=== PATIENT | male | born 1955 | race Caucasian/White ===

== ENCOUNTER 2019-05-19 08:58 | Outpatient (CLI) | payer BC, SELFPAY ==
--- NOTE | ~2019-05-19 | CT_ITS ---
EXAMINATION: CT lung screening DATE: 05/19/2019 09:23 INDICATION: tobacco dependence; lung cancer screening TECHNIQUE: Computed tomography (CT) of the chest was performed without intravenous contrast using a [place] low dose lung cancer screening protocol. Additional 3D reconstructions utilizing coronal maxi mum intensity projection (MIP) were performed. Automated exposure control and iterative reconstructio n technique were employed. The dose-length product was 483.55 mGy-cm. COMPARISON: 02/06/2017 FINDINGS: Mild emphysema at the apices. Unchanged 1-2 mm calcified nodule at the left apex consistent with old granulomatous disease. No new or enlarging pulmonary nodules identified. No other airspace disease, p ulmonary edema, pleural effusion or pneumothorax. Heart size is normal. Atherosclerotic coronary ирина ry calcific a cyst. No pericardial effusion. Fusiform ascending thoracic aortic aneurysm measuring up to 4.8 x 4.9 mm in maximal diameter. No pathologically enlarged thoracic lymphadenopathy. There are 3 low-attenuation hepatic cysts measuring up to 2.0 cm. 2.5 cm mass containing macroscopic fat consis tent with myelolipoma. 1.3 cm low-attenuation adenoma in the right adrenal gland. There are bridging osteophytes at multiple levels in the spine, consistent with diffuse idiopathic skeletal hyperostosis (DISH). IMPRESSION: 1. Lung-RADS category 1: Negative. Continue annual screening with noncontrast low-dose chest CT in 12 months. Reviewed, dictated and finalized at location A. CONSULTANT IMPRESSION: 1. Lung-RADS category 1: Negative. Continue annual screening with noncontrast l ow-dose chest CT in 12 months.
== END 2019-05-19 08:59 | disposition home or self-care (01) ==
PROVIDERS: PCP Internal Medicine; Visit Provider Internal Medicine
DX: Z12.2 Encounter for screening for malignant neoplasm of respiratory organs (principal); Z87.891 Personal history of nicotine dependence
CPT/HCPCS: G0297

== ENCOUNTER 2019-06-09 07:34 | Outpatient (CLI) | payer BC, SELFPAY ==
[2019-06-09 07:51] LABS: Add Urine Microscopic? NO; Appearance Urine Clear (Clear); Bilirubin Urine Negative (Negative); Blood Urine Negative (Negative); Color Urine Yellow (Yellow); Glucose Urine UA Negative (Negative); Ketones Urine Negative (Negative); Leukocyte Esterase Ur Negative LEU/UL (Negative); Nitrate Urine Negative (Negative); Protein Urine Negative (Negative); Specific Grav Ur 1.025 (1.010-1.020); Urobilinogen Urine 0.2 mg/dL (0.2-1.0)
[2019-06-09 08:02] LABS: Creatinine Urine 112.39 mg/dL (40-278)
[2019-06-09 08:04] LABS: Hemoglobin A1C 6.5 % (<5.7)
[2019-06-09 08:16] LABS: MALB Creatinine Ratio 11.4 mg/g (0-30); Microalbumin Urine Random 12.9 mg/L
[2019-06-09 09:10] LABS: Alanine Aminotransferase 39 U/L (16-63); Albumin Level 3.8 g/dL (3.4-5.0); Alkaline Phosphatase 126 U/L (46-116); Anion Gap 11.8 mmol/L (7-16); Aspartate Amino Transferase 16 U/L (15-37); Bilirubin,Total 0.6 mg/dL (0.00-1.00); Blood Urea Nitrogen 26 mg/dL (7-18); Calcium 8.4 mg/dL (8.5-10.1); Carbon Dioxide 30 mmol/L (21-32); Chloride 105 mmol/L (98-108); Cholesterol 127 mg/dL (0-200); Creatine Kinase 123 U/L (39-308); Estimated Glomerular Filt Rate 55; Glucose 108 mg/dL (70-99); HDL Direct 53 mg/dL (40-60); LDL Cholesterol Calculated 55 mg/dL (<130); Osmolality Calculated 301 mOsm/kg (285-295); Potassium 3.8 mmol/L (3.5-5.1); Prostate Specific Antigen 3.8 ng/mL (< OR = 4.0); Sodium 143 mmol/L (136-145); Total Protein 6.8 g/dL (6.4-8.2); Triglycerides 94 mg/dL (0-150)
== END 2019-06-09 07:35 | disposition home or self-care (01) ==
LOC: CHSLAB 07:36
PROVIDERS: PCP Internal Medicine; Visit Provider Internal Medicine
DX: E78.5 Hyperlipidemia, unspecified (principal); I10 Essential (primary) hypertension; Z12.5 Encounter for screening for malignant neoplasm of prostate; E11.65 Type 2 diabetes mellitus with hyperglycemia
CPT/HCPCS: 36415; 80053; 80061; 81003; 82043; 82550; 83036; 84153; G0103

== ENCOUNTER 2019-12-04 08:25 | Outpatient (CLI) | payer BC, SELFPAY ==
[2019-12-05 01:53] LABS: SARS-CoV-2 RNA PCR Negative
== END 2019-12-04 08:26 | disposition home or self-care (01) ==
LOC: CHSLAB 08:27
PROVIDERS: PCP Internal Medicine; Visit Provider Internal Medicine
DX: Z20.828 Contact with and (suspected) exposure to other viral communicable diseases (principal)
CPT/HCPCS: 87635; C9803; U0003

== ENCOUNTER 2019-12-31 09:56 | Outpatient (CLI) | payer BC, SELFPAY ==
[2020-01-01 01:34] LABS: SARS-CoV-2 RNA PCR Negative
== END 2019-12-31 09:57 | disposition home or self-care (01) ==
PROVIDERS: PCP Internal Medicine; Visit Provider Internal Medicine
DX: Z20.828 Contact with and (suspected) exposure to other viral communicable diseases (principal)
CPT/HCPCS: 87635; C9803; U0003

== ENCOUNTER 2020-02-22 07:41 | Outpatient (CLI) | payer BC, SELFPAY ==
[2020-02-22 07:57] LABS: Add Urine Microscopic? NO; Appearance Urine Clear (Clear); Bilirubin Urine Negative (Negative); Blood Urine Negative (Negative); Color Urine Yellow (Yellow); Glucose Urine UA Negative (Negative); Ketones Urine Negative (Negative); Leukocyte Esterase Ur Negative (Negative); Nitrate Urine Negative (Negative); Protein Urine Negative (Negative); Urobilinogen Urine 0.2 mg/dL (0.2-1.0); pH Urine 5.5 (5.0-8.0)
[2020-02-22 08:21] LABS: Hemoglobin A1C 6.2 % (<5.7)
[2020-02-22 08:35] LABS: Alanine Aminotransferase 38 U/L (16-63); Alkaline Phosphatase 140 U/L (46-116); Anion Gap 10 mmol/L (8-16); Aspartate Amino Transferase 18 U/L (15-37); Bilirubin,Total 0.7 mg/dL (0.00-1.00); Blood Urea Nitrogen 22 mg/dL (7-18); Calcium 8.5 mg/dL (8.5-10.1); Carbon Dioxide 28 mmol/L (21-32); Chloride 104 mmol/L (98-108); Cholesterol 128 mg/dL (0-200); Creatine Kinase 113 U/L (39-308); Estimated Glomerular Filt Rate 55; Glucose 114 mg/dL (70-99); HDL Direct 32 mg/dL (40-60); LDL Cholesterol Calculated 70 mg/dL (<130); Osmolality Calculated 298 mOsm/kg (285-295); Potassium 3.7 mmol/L (3.5-5.1); Sodium 142 mmol/L (136-145); Total Protein 7.1 g/dL (6.4-8.2); Triglycerides 131 mg/dL (0-150)
== END 2020-02-22 07:42 | disposition home or self-care (01) ==
LOC: CHSLAB 07:43
PROVIDERS: PCP Internal Medicine; Visit Provider Internal Medicine
DX: E78.2 Mixed hyperlipidemia (principal); I12.9 Hypertensive chronic kidney disease with stage 1 through stage 4 chronic kidney disease, or unspecified chronic kidney disease; R73.01 Impaired fasting glucose; N18.2 Chronic kidney disease, stage 2 (mild)
CPT/HCPCS: 36415; 80053; 80061; 81003; 82550; 83036

== ENCOUNTER 2020-05-09 08:49 | Outpatient (CLI) | payer BC, SELFPAY ==
[2020-05-09 09:48] LABS: Anion Gap 10 mmol/L (8-16); Blood Urea Nitrogen 21 mg/dL (7-18); Calcium 8.6 mg/dL (8.5-10.1); Carbon Dioxide 26 mmol/L (21-32); Chloride 104 mmol/L (98-108); Estimated Glomerular Filt Rate 44; Glucose 132 mg/dL (70-99); Osmolality Calculated 295 mOsm/kg (285-295); Potassium 4.9 mmol/L (3.5-5.1); Sodium 140 mmol/L (136-145)
== END 2020-05-09 08:50 | disposition home or self-care (01) ==
LOC: CHSLAB 08:51
PROVIDERS: PCP Internal Medicine; Visit Provider Internal Medicine
DX: I10 Essential (primary) hypertension (principal)
CPT/HCPCS: 36415; 80048

== ENCOUNTER 2020-05-23 09:11 | Outpatient (CLI) | payer BC, SELFPAY ==
--- NOTE | ~2020-05-23 | CT_ITS ---
EXAMINATION:CT lung screening DATE: 05/23/2020 09:37 INDICATION: Personal history of tobacco dependence. Smoker who quit 5 years ago with 41 pack year his tory. TECHNIQUE: Computed tomography (CT) of the chest was performed without intravenous contrast. Automate d exposure control and iterative reconstruction technique were employed. The dose-length product (DLP ) was 520.52 mGy-cm. COMPARISON: Chest CT 05/19/2019 FINDINGS: There is mild emphysema. A calcified left lung nodule is consistent with old granulomatous disease. No pleural effusion. The heart size is normal. There are coronary artery calcifications. No pericardial effusion. There is ectasia of ascending aorta measuring 4.6 cm. There is diffuse hepatic steatosis. There are cysts in the liver measuring up to 2.1 cm. There is a 13 mm mass in right adrena l gland measuring low-attenuation, consistent with an adenoma. There is a 2.7 cm mass in left adrenal gland containing macroscopic fat, consistent with a myelolipoma. There are bridging endplate osteoph ytes at multiple levels in the spine, consistent with diffuse idiopathic skeletal hyperostosis (DISH) . There is mild splenomegaly. IMPRESSION: 1. Lung-RADS category 1: Negative. Continue annual screening with noncontrast low-dose chest CT in 12 months. 2. Worsened mild splenomegaly. Reviewed, dictated and finalized at location A. SCIENTISTS IMPRESSION: 1. Lung-RADS category 1: Negative. Continue annual screening with noncontrast l ow-dose chest CT in 12 months. 2. Worsened mild splenomegaly.
== END 2020-05-23 09:12 | disposition home or self-care (01) ==
LOC: CHSIMG 09:12
PROVIDERS: PCP Internal Medicine; Visit Provider Internal Medicine
DX: Z12.2 Encounter for screening for malignant neoplasm of respiratory organs (principal); Z87.891 Personal history of nicotine dependence
CPT/HCPCS: 71271

== ENCOUNTER 2020-12-22 00:29 | Day surgery (SDC) | payer BC, SELFPAY ==
[2020-12-08 14:40] VITALS: BMI 38.5
[2020-12-22 06:53] VITALS: BP 156/96; PULSE 95; RESP 21; TEMP 36.3; O2SAT 98; BMI 41.4
[2020-12-22] MEDS: LACTATED RINGERS 1,000 ML 150 ML IV CONT (06:56)
--- NOTE | 2020-12-22 07:41 | WPDANESEPPF ---
Anes - Initial Pre Proc Eval Procedure: Operation Date: 12/22/20 08:00 Proposed Procedures p Colonoscopy - Felix Mistry DO Date/Time: 12/22/20 07:41 Surgeon: Felix Mistry DO Pre Op Diagnosis: colon polyps Patient Data Age: 65 Gender: M Height: 1.83 m Weight: 138.7 kg Last Vital Signs Temp 97.4 F L 12/22/20 06:53 Pulse 95 12/22/20 06:53 Resp 21 H 12/22/20 06:53 BP 156/96 H 12/22/20 06:53 Pulse Ox 98 12/22/20 06:53 Allergies Allergy/AdvReac Type Severity Reaction Status Date / Time bee venom protein (honey bee) Allergy Unknown SWELLING Verified 12/22/20 06:52 OF EXTREMETIES cefaclor Allergy Unknown Hives Verified 12/22/20 06:52 Home Medications Medication Instructions Recorded Confirmed Type atorvastatin 40 mg PO DAILY 12/08/20 12/22/20 History losartan 100 mg PO DAILY 12/08/20 12/22/20 History Patient hx anesthesia problems: none Family hx anesthesia problems: none PMFSH Past Medical History Medical History (Updated 12/22/20 @ 07:37 by Manav Guaman MD) COPD (chronic obstructive pulmonary disease) Hyperlipidemia Hypertension Family History Family History (Updated 11/15/17 @ 10:01 by DOCTOR UNKNOWN) Other Family history of lung cancer Hypertension Social History Social History Smoking packs per day: 1 Smoking cigarettes per day: 20.0 Smoking status: Former smoker Smoking end date: 04/01/15 Alcohol intake: current Substance use type: does not use Anes - Eval Final PreProcedure Day of Procedure 12/22/20 07:41 Patient weight: morbidly obese Heart: regular rate and rhythm Lungs: clear to auscultation Airway: Mallampati scale class II Neurological: alert and oriented Last oral intake: >/= 8 hours ASA classification: III Emergent: no Anesthetic plan: proceed Anesthesia type and monitoring: general GIVS and standard monitoring Informed Consent: The patient's anesthetic plan and its attendant risks and benefits were discussed with the patient/family/POA. Questions were solicited and answers provided to the satisfaction of the patient/family/POA.
--- NOTE | 2020-12-22 07:55 | PM.IMHP ---
H&P: HPI History of Present Illness Date/Time: 12/22/20 07:55 Chief Complaint: history of colon polyps Narrative: this is a 65-year-old man who presents for colonoscopy. Last colonoscopy was 5 years ago and a polyp was removed. He denies any hematochezia or melena. There is no family history of colon cancer. Review of Systems Review of Systems: All systems reviewed & are unremarkable except as noted in HPI and below Constitutional: Constitutional: Denies chills, Denies fever(s), Denies headache(s) and Denies weight loss Eyes: Eyes: Denies change in vision ENT: Denies dizziness, Denies headache(s), Denies neck mass and Denies throat swelling Cardiovascular: Cardiovascular: Denies chest pain, Denies lightheadedness and Denies dyspnea Respiratory: Respiratory: Denies cough, Denies dyspnea and Denies wheezing Gastrointestinal: Gastrointestinal: Denies abdominal pain, Denies change in bowel habits, Denies nausea and Denies vomiting Genitourinary: Genitourinary: Denies hematuria and Denies dysuria Musculoskeletal: Musculoskeletal: Reports as per HPI Integumentary/Breasts: Skin/Breast: Reports as per HPI Neurologic: Denies dizziness and Denies headache(s) Allergic/Immunologic: Allergic/Immunologic: Denies throat swelling and Denies wheezing [facility] Past Medical History Medical History (Updated 12/22/20 @ 07:56 by Felix Mistry DO) COPD (chronic obstructive pulmonary disease) Hyperlipidemia Hypertension Family History Family History (Updated 11/15/17 @ 10:01 by DOCTOR UNKNOWN) Other Family history of lung cancer Hypertension Social History Social History Smoking packs per day: 1 Smoking cigarettes per day: 20.0 Smoking status: Former smoker Smoking end date: 04/01/15 Alcohol intake: current Substance use type: does not use Meds Home Medications and Allergies Home Medications Medication Instructions Recorded Confirmed Type atorvastatin 40 mg PO DAILY 12/08/20 12/22/20 History losartan 100 mg PO DAILY 12/08/20 12/22/20 History Allergies Allergy/AdvReac Type Severity Reaction Status Date / Time bee venom protein (honey bee) Allergy Unknown SWELLING Verified 12/22/20 06:52 OF EXTREMETIES cefaclor Allergy Unknown Hives Verified 12/22/20 06:52 Vital Signs Vital Signs - 24 hr 12/22/20 06:53 Temperature 36.3 C L Pulse Rate 95 Respiratory Rate 21 H Blood Pressure 156/96 H Pulse Oximetry 98 Exam Const: General: no acute distress and alert Orientation/consciousness: patient oriented x3 HENMT: Head: normocephalic and atraumatic Ears: hearing grossly normal bilaterally General nose exam: Normal nares present Mouth: Yes Normal oral and palatal mucosa present Eyes: Periorbital: periorbital findings normal Sclera: sclerae normal EOM: EOMs intact bilaterally Neck: Neck: normal visual inspection, no lymphadenopathy and trachea midline Chest: Chest palpation & inspection: normal inspection of the chest Resp: Effort & Inspection: normal respiratory effort Auscultation: clear to auscultation bilaterally Cardio: Jugular venous distension: no JVD Rate: regular rate Rhythm: regular rhythm Heart sounds: S1 normal heart sound present and S2 normal heart sound present Peripheral pulses: Peripheral pulses 2+ throughout GI: Inspection: normal to inspection GI Palp: Yes Soft to palpation, No Tenderness to palpation present (GI), No Guarding due to palpation present (GI) and No Rebound tenderness present Percussion: Yes normal to percussion Auscultation: normal bowel sounds : General: Yes no CVA tenderness Back/Spine/Pelvis: Back: no CVA tenderness Neuro: General: patient oriented x3, no focal motor deficits and CN's II-XI intact bilaterally Cognition (Neuro): normal cognition Speech: normal speech Motor exam (neuro): 5/5 motor strength present throughout Extrem: General: capillary refill normal and no clubbing, cyanosis or edema Assessmen
--- NOTE | 2020-12-22 08:16 | SUR.OPER ---
cecal time 0816
[2020-12-22 08:34] VITALS: BP 109/71; PULSE 81; RESP 20; O2SAT 96
[2020-12-22 08:44] VITALS: BP 107/78; PULSE 76; RESP 15; O2SAT 95
[2020-12-22 08:54] VITALS: BP 127/74; PULSE 74; RESP 18; O2SAT 95
== END 2020-12-22 09:14 | disposition home or self-care (01) ==
PROVIDERS: PCP Internal Medicine; Visit Provider Surgery
PROC: 0DJD8ZZ Inspection of Lower Intestinal Tract, Via Natural or Artificial Opening Endoscopic (ICD-10-PCS; CPT 45378; principal; 2020-12-22 08:00)
DX: Z12.11 Encounter for screening for malignant neoplasm of colon (principal); D12.8 Benign neoplasm of rectum; K57.30 Diverticulosis of large intestine without perforation or abscess without bleeding; K64.8 Other hemorrhoids; J44.9 Chronic obstructive pulmonary disease, unspecified; I10 Essential (primary) hypertension; E78.5 Hyperlipidemia, unspecified; Z87.891 Personal history of nicotine dependence
CPT/HCPCS: 45380; 88305; J2704; J7120

== ENCOUNTER 2021-06-29 10:22 | Outpatient (CLI) | payer BC, SELFPAY ==
--- NOTE | ~2021-06-29 | CT_ITS ---
EXAMINATION:CT diagnostic chest wo con DATE: 06/29/2021 11:01 INDICATION: Thoracic aortic aneurysm. Pulmonary nodule. TECHNIQUE: Computed tomography (CT) of the chest was performed without intravenous contrast. Automate d exposure control and iterative reconstruction technique were employed. The dose-length product (DLP ) was 833.47 mGy-cm. COMPARISON: Chest CT 05/23/2020 FINDINGS: There is mild emphysema. No pleural effusion. The heart size is normal. There are coronary artery calcifications. No pericardial effusion. There is ectasia of ascending aorta measuring 4.7 cm. There are cysts in the liver measuring up to 2.4 cm. There is a 2.5 cm mass in left adrenal gland co ntaining fat, consistent with a myelolipoma. There are bridging endplate osteophytes at multiple leve ls in the spine, consistent with diffuse idiopathic skeletal hyperostosis (DISH). IMPRESSION: 1. Stable ectasia of ascending aorta measuring 4.7 cm. Reviewed, dictated and finalized at location A.
--- NOTE | ~2021-06-29 | XR_ITS ---
EXAMINATION: XR knee RT min 4V EXAM DATE: 06/29/2021 11:03 INDICATION: B/L Ant Knee Pain . TECHNIQUE: Right knee lateral, frontal AP, frontal PA tunnel, sunrise projections. Correlation is mad e to contralateral knee same date. FINDINGS: No evidence osteochondral defect or joint body in the right knee joint. There is suprapa tellar enthesopathy. No joint effusion. There is mild tricompartmental but patellofemoral compartment predominant primary osteoarthritis, symmetric to the contralateral side. There are no acute fracture s or dislocations identified. There is no subcutaneous gas. The soft tissue is unremarkable. Ther e are no radiopaque foreign bodies. IMPRESSION: Mild right knee patellofemoral compartment predominant osteoarthritis. Reviewed, dictated and finalized at location B. IMPRESSION: Mild right knee patellofemoral compartment predominant osteoarthrit is.
--- NOTE | ~2021-06-29 | XR_ITS ---
EXAMINATION: XR knee LT min 4V EXAM DATE: 06/29/2021 11:02 INDICATION: B/L Ant Knee Pain . TECHNIQUE: Left knee lateral, frontal AP, frontal PA tunnel, sunrise projections. Correlation is made to contralateral knee same date. FINDINGS: No evidence osteochondral defect or joint body in the left knee joint. There are no acute fractures or dislocations identified. There is no subcutaneous gas. The soft tissue is unremarkabl e. There are no radiopaque foreign bodies. There is suprapatellar enthesopathy. There is mild tric ompartmental primary osteoarthritis, most predominant in the patellofemoral compartment. IMPRESSION: Mild left patellofemoral compartment predominant osteoarthritis. Reviewed, dictated and finalized at location B.
== END 2021-06-29 10:23 | disposition home or self-care (01) ==
LOC: CHSIMG 10:25
PROVIDERS: PCP Internal Medicine; Visit Provider Internal Medicine
DX: M25.562 Pain in left knee (principal); M25.561 Pain in right knee; I71.2 Thoracic aortic aneurysm, without rupture; R91.1 Solitary pulmonary nodule
CPT/HCPCS: 71250; 73564

== ENCOUNTER 2022-09-12 08:52 | Outpatient (CLI) | payer BC, SELFPAY ==
--- NOTE | ~2022-09-12 | CT_ITS ---
EXAMINATION:CT diagnostic chest w con DATE: 09/12/2022 18:56 INDICATION: Thoracic aortic aneurysm. TECHNIQUE: Computed tomography (CT) of the chest was performed with 75 mL Omnipaque 350 intravenous c ontrast. Automated exposure control and iterative reconstruction technique were employed. The dose-le ngth product (DLP) was 971.78 mGy-cm. COMPARISON: Chest CT 06/29/2021 FINDINGS: There is mild emphysema. No pleural effusion. The heart size is normal. There are coronary artery calcifications. No pericardial effusion. Thoracic aorta measures 4.7 cm at the sinuses of Vals yusuf, 4.3 cm at the sinotubular junction, 4.9 cm in the mid ascending aorta, 3.3 cm at the aortic ist hmus, and 3.3 cm in the mid descending aorta. There are cysts in the liver measuring up to 2.1 cm. Th ere is diffuse hepatic steatosis. There is a 2.2 cm mass in left adrenal gland containing fat, consis tent with a myelolipoma. There are bridging endplate osteophytes at multiple levels in the spine, con sistent with diffuse idiopathic skeletal hyperostosis (DISH). IMPRESSION: 1. Ectasia of ascending aorta measuring 4.9 cm that measured 4.7 cm on 06/29/2021. Reviewed, dictated and finalized at location A. IMPRESSION: 1. Ectasia of ascending aorta measuring 4.9 cm that measured 4.7 cm on 2.
== END 2022-09-12 08:53 | disposition home or self-care (01) ==
LOC: CHSIMG 17:19
PROVIDERS: PCP Internal Medicine; Visit Provider Internal Medicine
DX: I71.23 Aneurysm of the descending thoracic aorta, without rupture (principal)
CPT/HCPCS: 71260; Q9967

== ENCOUNTER 2022-12-10 11:36 | Outpatient (CLI) | payer BC, MEDICARE, SELFPAY ==
--- NOTE | ~2022-12-10 | CT_ITS ---
EXAMINATION: CT abdomen pelvis w con DATE: 12/10/2022 12:29 INDICATION: Bilateral lower abdominal pain. Diarrhea. Nausea. TECHNIQUE: Computed tomography (CT) of the abdomen and pelvis was performed with 100 mL Omnipaque 350 intravenous contrast. Automated exposure control and iterative reconstruction technique were employe d. The dose-length product was 1509.42 mGy-cm. COMPARISON: None. FINDINGS: The visualized portions of the lung bases demonstrate mild atelectasis. No pleural effusion . The heart size is normal. No pericardial effusion. There are cysts in the liver measuring up to 2.6 cm. The gallbladder is normal in size. The spleen, pancreas, and right adrenal gland are normal. The re is a 2.5 cm mass in left adrenal gland containing fat, consistent with a myelolipoma. The kidneys are normal. The prostate is mildly enlarged. There is a right inguinal hernia containing fat. There i s diverticulosis of the colon without evidence of diverticulitis. The appendix is fluid-filled and di lated to 17 mm with surrounding fat stranding, consistent with appendicitis. There is calcified ather osclerosis of the aorta and many of the other arteries. There is a 3.8 cm fusiform aneurysm of infrar enal aorta. There are no pathologically enlarged lymph nodes. There is no free intraperitoneal fluid. There is moderate lumbar spondylosis. There are bridging endplate osteophytes at multiple levels in the thoracic spine, consistent with diffuse idiopathic skeletal hyperostosis (DISH). IMPRESSION: 1. Acute appendicitis. 2. 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 Reviewed, dictated and finalized at location A.
[2022-12-10 11:53] LABS: Basophils Absolute Auto 0.03 K/mm3 (0.00-0.10); Basophils Percent Auto 0.4 % (0.0-1.0); Eosinophils Percent Auto 2.6 % (1.0-6.0); Hematocrit 46.8 % (37.0-46.0); Hemoglobin 15.7 g/dL (12.4-15.3); Immature Granulocyte Absolute 0.02 K/mm3 (0.00-0.00); Immature Granulocyte Percent A 0.3 % (0.0-0.0); Lymphocytes Absolute Auto 2.79 K/mm3 (1.10-4.50); Lymphocytes Percent Auto 36.1 % (18.0-42.0); Mean Corpuscular HGB Conc 33.5 g/dL (32.0-36.0); Mean Corpuscular Hemoglobin 31.7 pg (27.0-31.0); Mean Corpuscular Volume 94.5 fL (78.0-102.0); Mean Platelet Volume 8.9 fl (8.7-11.0); Monocytes Absolute Auto 0.73 K/mm3 (0.10-0.90); Monocytes Percent Auto 9.5 % (2.0-11.0); Neutrophils Percent Auto 51.1 % (50.0-70.0); Platelet Count Result 186 K/mm3 (150-420); Red Blood Count 4.95 M/mm3 (4.70-6.10); Red Cell Distribution Width 12.9 % (11.6-14.4); White Blood Count 7.7 K/mm3 (4.8-10.8)
[2022-12-10 12:16] LABS: Alanine Aminotransferase 28 U/L (16-63); Albumin Level 3.7 g/dL (3.4-5.0); Alkaline Phosphatase 129 U/L (46-116); Amylase 35 U/L (25-115); Anion Gap 8 mmol/L (8-16); Aspartate Amino Transferase 15 U/L (15-37); Bilirubin,Total 0.6 mg/dL (0.00-1.00); Blood Urea Nitrogen 26 mg/dL (7-18); Carbon Dioxide 27 mmol/L (21-32); Chloride 103 mmol/L (98-108); Estimated Glomerular Filt Rate 45; Glucose 129 mg/dL (70-99); Lipase 27 U/L (16-77); Osmolality Calculated 292 mOsm/kg (285-295); Potassium 4.2 mmol/L (3.5-5.1); Sodium 138 mmol/L (136-145); Total Protein 7.4 g/dL (6.4-8.2)
== END 2022-12-10 11:37 | disposition home or self-care (01) ==
LOC: CHSLAB 11:39
PROVIDERS: PCP Internal Medicine; Visit Provider Nurse Practitioner Family
DX: R10.9 Unspecified abdominal pain (principal); R19.7 Diarrhea, unspecified; K35.80 Unspecified acute appendicitis; I71.43 Infrarenal abdominal aortic aneurysm, without rupture
CPT/HCPCS: 36415; 74177; 80053; 82150; 83690; 85025; Q9967

== ENCOUNTER 2022-12-10 14:23 | Observation (INO) | payer BC, MEDICARE, SELFPAY ==
[2022-12-10] VITALS (14 sets, daily range): BP systolic 114–155; BP diastolic 79–95; PULSE 71–83; RESP 17–25; TEMP 36.5–36.9; O2SAT 94–98; BMI 41.5
--- NOTE | 2022-12-10 15:57 | ED.ABDPAIN ---
HPI - Abdominal Pain General Chief Complaint: Abdominal Pain <HOLLI Wright Last Filed: 12/10/22 16:35> Stated Complaint: appendicitis <HOLLI Wright Last Filed: 12/10/22 16:35> Time Seen by Provider: 12/10/22 15:56 <Anu Guy PA-C - Last Filed: 12/10/22 16:35> Source: patient <HOLLI Wright Last Filed: 12/10/22 16:35> Mode of arrival: ambulatory <HOLLI Wright Last Filed: 12/10/22 16:35> Limitations: no limitations <HOLLI Wright Last Filed: 12/10/22 16:35> History of Present Illness HPI narrative: This is a 67 year old male that presents to the ER for abdominal pain. Ongoing over the last 4 days. Associated with diarrhea and anorexia. He was evaluated at his primary's office today. Had outpatient blood work and a CT scan. He was called and told to go to the ER because he had appendicitis. Denies fevers. <HOLLI Wright Last Filed: 12/10/22 16:35> Related Data Home Medications: Home Medications Medication Instructions Recorded Confirmed atorvastatin 40 mg tablet 40 mg PO DAILY 12/08/20 12/22/20 losartan 100 mg tablet 100 mg PO DAILY 12/08/20 12/22/20 <HOLLI Wright Last Filed: 12/10/22 16:35> Allergies/Adverse Reactions: Allergies Allergy/AdvReac Type Severity Reaction Status Date / Time bee venom protein (honey bee) Allergy Unknown SWELLING Verified 12/22/20 06:52 OF EXTREMETIES cefaclor Allergy Unknown Hives Verified 12/22/20 06:52 <HOLLI Wright Last Filed: 12/10/22 16:35> Review of Systems Review of Systems: CONSTITUTIONAL: Denies fever GASTROINTESTINAL: Reports abdominal pain, and diarrhea. <HOLLI Wright Last Filed: 12/10/22 16:35> All systems reviewed & are unremarkable except as noted in HPI and below <Anu Guy PA-C - Last Filed: 12/10/22 16:35> [facility] Past Medical History Medical History: Medical History (Updated 12/10/22 @ 17:08 by Phyllis Munson PA-C) Benign prostatic hyperplasia Chronic kidney disease Chronic obstructive pulmonary disease Hyperlipidemia Hypertension Thoracic aortic aneurysm <Anu Guy PA-C - Last Filed: 12/10/22 16:35> Surgical History Surgical History: Surgical History (Updated 12/10/22 @ 17:08 by Phyllis Munson PA-C) History of colonoscopy with polypectomy History of parotidectomy History of tonsillectomy <Anu Guy PA-C - Last Filed: 12/10/22 16:35> Family History Family History: Family History Other Family history of lung cancer Hypertension <Anu Guy PA-C - Last Filed: 12/10/22 16:35> Social History Social History: Social History Smoking packs per day: 1 Smoking cigarettes per day: 20.0 Smoking status: Former smoker Smoking end date: 04/01/15 Alcohol intake: current Substance use type: does not use <Anu Guy PA-C - Last Filed: 12/10/22 16:35> Exam Narrative: GENERAL: Well-appearing, well-nourished, and in no acute distress. HEAD: Normocephalic, atraumatic. EYES: EOMI. CHEST: Clear to auscultation. No respiratory distress. No wheezes rales or rhonchi HEART: Regular rate and rhythm. No murmur heard. Normal peripheral pulses. ABDOMEN: Soft, nondistended, normal active bowel sounds. Tender to palpation in the RLQ, without guarding EXTREMITIES: Normal range of motion. No edema. SKIN: Warm, dry, no rash. NEURO: No focal deficits. Alert and oriented x3. PSYCH: Normal mood and affect <Anu Guy PA-C - Last Filed: 12/10/22 16:35> Course Course Emergency Course: Patient and family agree with plan of care <Anu Guy PA-C - Last Filed: 12/10/22 16:35> INSULATION HELPER/PA Physician Supervision For this patient encounter, I reviewed the INSULATION HELPER or PA documentation, treatment plan, and m
[2022-12-10] MEDS: PIPERACILLN/TAZ 3.375GM/NS50ML 3.375 GM/50 ML BAG IVPB (16:37)
--- NOTE | 2022-12-10 16:40 | PM.CNGS ---
Assessment and Plan Assessment and plan (1) Acute appendicitis: Qualifiers: Acute appendicitis type: with localized peritonitis Appendicitis abscess presence: without abscess Appendicitis gangrene presence: without gangrene Appendicitis perforation presence: without perforation Qualified Code(s): K35.30 - Acute appendicitis with localized peritonitis, without perforation or gangrene Code(s): K35.80 - Unspecified acute appendicitis Status: Acute Assessment and Plan: long d/w pt and re: conservative mgmt c abx vs surgical appendectomy, given that his exam is completely benign and labs are normal I believe it is reasonable to admit the pt for observation, if he cont to have benign exam and labs are normal in am he can be discharged c po abx and f/u, if he worsens we will proceed c appendectomy History of Present Illness Consult details Consult date: 12/10/22 Reason for consult: abdominal pain Requesting physician: Anu Guy PA-C Narrative: The patient is a 67-year-old male presenting to the emergency department after outpatient CT showed acute appendicitis. Patient reports that he has had mild lower abdominal pain over the last week or so. The patient reports associated nausea, poor appetite, and diarrhea. The patient denies any fevers or chills. The patient reports over the weekend his pain dramatically improved. He did have an outpatient CT scan today that showed appendicitis. The patient report is experiencing little to no pain and his symptoms are largely resolved. Review of Systems Review of Systems: All systems reviewed & are unremarkable except as noted in HPI and below PMFSH Past Medical History Medical History COPD (chronic obstructive pulmonary disease) Hyperlipidemia Hypertension Family History Family History Other Family history of lung cancer Hypertension Social History Social History Smoking packs per day: 1 Smoking cigarettes per day: 20.0 Smoking status: Former smoker Smoking end date: 04/01/15 Alcohol intake: current Substance use type: does not use Meds Home Medications and Allergies Home Medications Medication Instructions Recorded Confirmed Type atorvastatin 40 mg tablet 40 mg PO DAILY 12/08/20 12/22/20 History losartan 100 mg tablet 100 mg PO DAILY 09/09/21 09/23/21 History Allergies Allergy/AdvReac Type Severity Reaction Status Date / Time bee venom protein (honey bee) Allergy Unknown SWELLING Verified 12/22/20 06:52 OF EXTREMETIES cefaclor Allergy Unknown Hives Verified 12/22/20 06:52 Vital Signs Vital Signs - 24 hr 12/10/22 14:28 12/10/22 15:09 Temperature 36.5 C 36.7 C Pulse Rate 82 79 Respiratory Rate 18 22 H Blood Pressure 140/95 H 114/93 H Pulse Oximetry 97 97 Oxygen Delivery Room Air Exam Const: General: cooperative, comfortable, no acute distress and obese HENMT: Head: normal to inspection, normocephalic and atraumatic Eyes: General: appearance normal, both eyes and all related structures Neck: Neck: normal visual inspection Resp: Auscultation: clear to auscultation bilaterally Cardio: Rate: regular rate Rhythm: regular rhythm GI: Inspection: normal to inspection and distended GI Palp: No abdominal tenderness, Yes Soft to palpation, No Tenderness to palpation present (GI), No Guarding due to palpation present (GI) and No Rigid due to palpation Skin: General skin exam: normal color and no rashes or lesions noted Neuro: General: patient oriented x3 and CN's II-XI intact bilaterally Extrem: General: normal to inspection and full ROM Psych: Appearance: grossly normal Results Labs Labs: All other labs normal. Imaging Abdomen CT scan report/results: report reviewed and image reviewed
--- NOTE | 2022-12-10 16:57 | PM.IMHP ---
H&P: HPI History of Present Illness Date/Time: 12/10/22 17:30 Chief Complaint: Appendicitis. Narrative: This is a very pleasant 67-year-old male with hypertension, hyperlipidemia, benign prostatic hyperplasia, and chronic kidney disease who presented to the emergency department via private vehicle from home for evaluation after an outpatient CT scan showed appendicitis. The patient provides the following history. On he developed discomfort throughout the lower abdomen as well as diarrhea and he thought perhaps he had diverticulitis. Saturday he had sweats but began feeling a bit better on Saturday. He eventually had something to eat on Saturday however he got nauseated shortly thereafter and his pain returned. He saw the PA at his doctor's office today and a CT of the abdomen and pelvis was ordered. He received a phone call that he to come to the emergency department as a showed evidence of acute appendicitis. After discussions with the surgeon, he has opted for medical treatment he will be admitted for IV antibiotics. His pain has actually started to improve and he has not had any recent nausea or vomiting. He denies fever. Review of Systems Review of Systems: Twelve systems were reviewed and are negative except for as per HPI. FORMERLY [facility], [facility] Past Medical History Medical History Benign prostatic hyperplasia Chronic kidney disease Chronic obstructive pulmonary disease Hyperlipidemia Hypertension Thoracic aortic aneurysm Surgical History Surgical History History of colonoscopy with polypectomy History of parotidectomy History of tonsillectomy Family History Family History Other Family history of lung cancer Hypertension Social History Social History Smoking packs per day: 1 Smoking cigarettes per day: 20.0 Smoking status: Former smoker Smoking end date: 07/20/15 Alcohol intake: current Substance use type: does not use Lack of Transportation: No Lack of Food: Never True Current Housing: I Have Housing Concerned About Future Housing: No Difficulty Paying Gas/Electric Bills: No Difficulty Paying for Meds: No Currently Unemployed: YES Education: Associate Degree Difficulty w/ Childcare or Family Care: No Spiritual care concerns: No Meds Home Medications and Allergies Home Medications Medication Instructions Recorded Confirmed Type atorvastatin 40 mg tablet 20 mg PO DAILY 12/08/20 12/10/22 History losartan 100 mg tablet 100 mg PO DAILY 12/08/20 12/10/22 History One-A-Day Men's 50 Plus 1 tablet PO DAILY 12/10/22 12/10/22 History aspirin 325 mg tablet (Jaspal 325 mg PO DAILY 12/10/22 12/10/22 History Aspirin) blood sugar diagnostic (OneTouch 12/10/22 12/10/22 History Verio test strips) blood-glucose meter (OneTouch 12/10/22 12/10/22 History Verio Flex Meter) carvedilol 12.5 mg tablet 12.5 mg PO BID 12/10/22 12/10/22 History glucosamine sulfate 500 mg tablet 500 mg PO DAILY 12/10/22 12/10/22 History (Glucosamine) metformin 500 mg tablet,extended 2,000 mg PO DAILY 12/10/22 12/10/22 History release 24 hr sumatriptan 20 mg/actuation nasal 20 mg intranasal DAILY PRN 12/10/22 12/10/22 History spray Migraine Headache tamsulosin 0.4 mg capsule 0.4 mg PO DAILY PRN Urinary 12/10/22 12/10/22 History Retention amoxicillin 875 mg-potassium 1 tablet PO Q12H #20 tabs 12/11/22 Rx clavulanate 125 mg tablet Allergies Allergy/AdvReac Type Severity Reaction Status Date / Time bee venom protein (honey bee) Allergy Unknown SWELLING Verified 12/22/20 06:52 OF EXTREMETIES cefaclor Allergy Unknown Hives Verified 12/22/20 06:52 Vital Signs Vital Signs - 24 hr 12/10/22 14:28 12/10/22 15:09 Temperature 97.7 F 98.0 F Puls
[2022-12-10 17:29] LABS: Glucose Point of Care 96 mg/dl (65-105)
--- NOTE | 2022-12-10 19:15 | ADMGEN ---
This patient, Foster Calderon, was admitted to Medical Room 241-01. Patient/family oriented to hospital policies and general routines including ID bracelet, bed and alarms, visiting hours, pain management, procedures, bathroom and other care routines, personal items, smoking policy, room service/diet, and visiting hours. Information on how to activate the Rapid Response Team has been discussed. Patient/Family are encouraged to report perceived risks to care and to ask questions if they do not understand what they are told or what they should do.
[2022-12-10 19:26] LABS: Estimated CRCL calculation 62 ml/min; Estimated Glomerular Filt Rate 47
[2022-12-10 21:24] LABS: Glucose Point of Care 108 mg/dl (65-105)
[2022-12-11] MEDS: PIPERACILLN/TAZ 3.375GM/NS50ML 3.375 GM/50 ML BAG IVPB ×3 (00:12→11:59)
[2022-12-11 05:59] LABS: Hematocrit 45.6 % (42.0-52.0); Hemoglobin 14.9 g/dL (14.0-18.0); Mean Corpuscular HGB Conc 32.7 g/dl (32-36); Mean Corpuscular Hemoglobin 31.3 pg (26-34); Mean Corpuscular Volume 95.8 fl (80-100); Mean Platelet Volume 9.1 fl (7.4-10.4); Platelet Count Result 172 k/mm3 (150-375); Red Blood Count 4.76 M/mm3 (4.6-6.20); Red Cell Distribution Width 13.1 % (11.5-14.5)
[2022-12-11 06:00] VITALS: BP 149/80; PULSE 73; RESP 18; TEMP 36.6; O2SAT 98
[2022-12-11 06:17] LABS: Alanine Aminotransferase 26 U/L (6-50); Alkaline Phosphatase 95 U/L (38-126); Anion Gap 12 mmol/L (8-16); Aspartate Amino Transferase 22 U/L (17-59); Bilirubin,Total 0.9 mg/dL (0.2-1.3); Blood Urea Nitrogen 23 mg/dL (9-20); Calcium 8.7 mg/dL (8.4-10.2); Carbon Dioxide 24 mmol/L (22-30); Chloride 101 mmol/L (98-107); Estimated CRCL calculation 58 ml/min; Estimated Glomerular Filt Rate 43; Glucose 115 mg/dL (65-110); Magnesium 2.2 mg/dL (1.6-2.3); Potassium 4.2 mmol/L (3.4-5.0); Sodium 137 mmol/L (137-145)
[2022-12-11 08:42] VITALS: BP 140/85; PULSE 73; RESP 14; O2SAT 97
[2022-12-11 08:44] VITALS: PULSE 73
[2022-12-11] MEDS: MULTIVITAMINS THERAPEUTIC TAB (*BKC) 1 TABLET PO (08:44)
[2022-12-11] MEDS: carvediloL 12.5 MG TABLET PO (08:44)
[2022-12-11] MEDS: ATORVASTATIN 20 MG TABLET PO (08:44)
[2022-12-11] MEDS: LOSARTAN POTASSIUM 100 MG TABLET PO (08:44)
[2022-12-11 08:52] LABS: Glucose Point of Care 121 mg/dl (65-105)
--- NOTE | 2022-12-11 09:22 | PM.PNGS ---
Progress Note: A&P Assessment and Plan (1) Acute appendicitis: Qualifiers: Acute appendicitis type: with localized peritonitis Appendicitis abscess presence: without abscess Appendicitis gangrene presence: without gangrene Appendicitis perforation presence: without perforation Qualified Code(s): K35.30 - Acute appendicitis with localized peritonitis, without perforation or gangrene Code(s): K35.80 - Unspecified acute appendicitis Status: Acute Assessment and Plan: Clinically improving, WBC normal and he is afebrile. Discussed both conservative management vs surgical appendectomy with patient this morning. He is improving with IV antibiotic therapy and agrees with continuing conservative management. Will advance to a diabetic diet and patient can discharge later today on oral antibiotics with follow-up with Dr. Coburn at the end of his course of antibiotics. Discussed with the patient reasons to return to the ER or call our office sooner. Plan I have discussed the patient's case and plan of care with Dr. Coburn. Subjective Subjective Date/Time Seen: 12/11/22 08:22 Patient reports: no new complaints, feels better, pain is less, flatus, bowel movement and afebrile Interval history: This is a 67-year-old who presented to the ER yesterday due to findings of acute appendicitis on an outpatient CT scan. He was having some lower abdominal pain for the past few days. His abdominal pain had already started improving prior to presenting to the ER. He was admitted and started on IV Zosyn. Chart reviewed. Repeat labs this morning showed a normal white blood cell count. Patient this morning says he did have some gas pains last night, but after passing lots of flatus and having 2 bowel movements that pain resolved. He does report loose stools. Denies any nausea or vomiting. Overall, his abdominal pain has improved and he rates it at a 1/10 on a pain scale. He feels his tenderness has improved as well. He is not requiring any pain medication. He is afebrile. Review of Systems Review of Systems: All systems reviewed & are unremarkable except as noted in HPI and below Exam Const: General: comfortable and no acute distress Orientation/consciousness: patient oriented x3 GI: Inspection: distended and obesity GI Palp: Yes Soft to palpation, Yes Tenderness to palpation present (GI) (mild tenderness in the right lower quadrant), No Guarding due to palpation present (GI) and No Rebound tenderness present Auscultation: normal bowel sounds Psych: Mental Status: mental status grossly normal Insight: Good insight present (Psych) Judgement: Good judgement present (Psych) Objective Data Vital Signs Vital Signs: Vital Signs - 24 hr 12/10/22 14:28 12/10/22 15:09 12/10/22 15:13 Temperature 97.7 F 98.0 F Pulse Rate 82 79 80 Respiratory Rate 18 22 H 22 H Blood Pressure 140/95 H 114/93 H Pulse Oximetry 97 97 96 Oxygen Delivery Room Air 12/10/22 15:30 12/10/22 15:58 12/10/22 16:00 Temperature Pulse Rate 74 74 78 Respiratory Rate 22 H 23 H 23 H Blood Pressure Pulse Oximetry 96 94 94 Oxygen Delivery 12/10/22 16:01 12/10/22 17:00 12/10/22 17:21 Temperature Pulse Rate 71 73 83 Respiratory Rate 24 H 23 H 25 H Blood Pressure 146/84 H Pulse Oximetry 97 96 98 Oxygen Delivery 12/10/22 17:31 12/10/22 17:47 12/10/22 18:39 Temperature 98.3 F Pulse Rate 82 74 Respiratory Rate 23 H 17 Blood Pressure 129/79 Pulse Oximetry 95 95 97 Oxygen Delivery 12/10/22 18:13 12/10/22 19:26 12/10/22 20:45 Temperature 98.4 F Pulse Rate 74 Respiratory Rate 18 Blood Pressure 155/88 H Pulse Oximetry 98 Oxygen Delivery Room Air Room Air 12/11/22 06:00 12/11/22 08:42 12/11/22 08:44 Temperature 97.9 F Pulse Rate 73 73 73 Respiratory Rate 18 14 Blood Pressure 149/80 H 140/85 Pulse Oximetry 98 97 Oxygen Delivery 12/10/22 18:49 Temperature 98.3 F Pulse
--- NOTE | 2022-12-11 10:45 | PM.DS ---
DS: Admitting Diagnosis Discharge Date 12/11/22 1045 Admitting Diagnosis appendicitis DS: Discharge Diagnosis Discharge Diagnosis (1) Acute appendicitis: Qualifiers: Acute appendicitis type: with localized peritonitis Appendicitis abscess presence: without abscess Appendicitis gangrene presence: without gangrene Appendicitis perforation presence: without perforation Qualified Code(s): K35.30 - Acute appendicitis with localized peritonitis, without perforation or gangrene Code(s): K35.80 - Unspecified acute appendicitis Status: Acute (2) Aortic aneurysm: Code(s): I71.9 - Aortic aneurysm of unspecified site, without rupture Status: Acute (3) Hypertension: Code(s): I10 - Essential (primary) hypertension Status: Acute (4) Hyperlipidemia: Code(s): E78.5 - Hyperlipidemia, unspecified Status: Acute (5) Chronic kidney disease: Code(s): N18.9 - Chronic kidney disease, unspecified Status: Acute Plan The patient presented to the emergency department after use found to have evidence of acute appendicitis on CT as detailed in HPI. Labs, imaging, EKG, and all reports were personally reviewed. The patient had a discussion with the on-call surgeon and he has opted for IV antibiotics. Patient states that his abdominal pain is improving in that his appetite is starting to come back. Continue Zosyn and serial abdominal exams. Analgesics and antiemetics are available if needed. CT scan also showed a 3.5 cm infrarenal abdominal aortic aneurysm which will need to be followed as an outpatient. Blood pressures were reviewed and they are stable. Creatinine appears to be at his baseline. His home medications will be reviewed and resumed as appropriate. DS: Summary Hospital Course Hospital Course: patient is 67-year-old male with past medical history of hypertension, hyperlipidemia, BPH, CKD who presented the ED with complaints of appendicitis. Patient had a scan done and did show appendicitis. CT scan was ordered after the patient was complaining of some lower abdominal pain as well as diarrhea which has been getting worse. General surgery has been consulted and patient was started on antibiotics. Options have been given to him by the surgeon including medical management versus surgery. Patient has opted for medical management this time. Currently patient is denying any chest pain, shortness a breath, nausea, vomiting, diarrhea constipation. Patient is stable for discharge for labs and vital signs. Patient will need to follow-up with general surgery in the office as instructed. Status at Discharge Functional status at discharge: independent ambulation Overall status at discharge: patient is progressing back to baseline Time Spent with Patient Time attestation: Total time spent providing and/or coordinating discharge services: 42 minutes Time spent: Greater than 30 minutes Specific discharge activities: Diagnostic testing, chart review, developing a treatment plan, education, care coordination documentation, physical exam, result review Exam Narrative: General: well-nourished, well-appearing 77-year-old female, sitting up in bed, comfortable, NARD Neuro: awake, alert and oriented x4, speech clear, no focal neuro deficits noted HEENMT: normocephalic, atraumatic, EOMI, sclerae anicteric, moist oral mucosa Respiratory: Clear to auscultation bilaterally without crackles, rhonchi or wheezes, nonlabored breathing Cardio: regular rate, regular rhythm with S1-S2 Abdomen: mildly distended large and round, normoactive bowel sounds, mildly tender to palpation right lower quadrant Extremities: no edema, erythema, or tenderness to palpation, DP pulses 2+ bilaterally Skin: no rashes or lesions, warm and dry Psych: appropriate mood and affect, judgment and insight intact DS: Data Data Completed and Pending Labs on day of discharge: Labs from last 24 hours 12/11/22
--- NOTE | 2022-12-11 11:35 | PC.NURSE ---
On 12/11/22, the student, [Peg Marshall], provided care and completed [facility] documentation on this patient. I have reviewed the student's documentation and agree with the findings.
[2022-12-11 12:06] LABS: Glucose Point of Care 162 mg/dl (65-105)
== END 2022-12-11 13:30 | disposition home or self-care (01) ==
LOC: ANHED 16:31 → ANH2MED 23:10
PROVIDERS: Physician Assistant; Admitting Provider Chiropractor; Emergency Provider Physician Assistant; PCP Internal Medicine; Visit Provider Nurse Practitioner
DX: K35.30 Acute appendicitis with localized peritonitis, without perforation or gangrene (principal); N40.1 Benign prostatic hyperplasia with lower urinary tract symptoms; R33.8 Other retention of urine; Z23 Encounter for immunization; I12.9 Hypertensive chronic kidney disease with stage 1 through stage 4 chronic kidney disease, or unspecified chronic kidney disease; N18.9 Chronic kidney disease, unspecified; J44.9 Chronic obstructive pulmonary disease, unspecified; E78.5 Hyperlipidemia, unspecified; G43.909 Migraine, unspecified, not intractable, without status migrainosus; I71.20 Thoracic aortic aneurysm, without rupture, unspecified; F10.90 Alcohol use, unspecified, uncomplicated; Z87.891 Personal history of nicotine dependence; Z82.49 Family history of ischemic heart disease and other diseases of the circulatory system; Z79.82 Long term (current) use of aspirin; Z79.84 Long term (current) use of oral hypoglycemic drugs; Z79.899 Other long term (current) drug therapy
CPT/HCPCS: 36415; 80053; 82565; 82948; 83735; 85027; 90471; 90694; 96365; 99285; A9270; G0008; G0378; J2543

== ENCOUNTER 2023-02-28 08:55 | Emergency (ER) | payer BC, MEDICARE, SELFPAY ==
[2023-02-28 09:02] VITALS: BP 147/84; PULSE 65; RESP 17; TEMP 36.9; O2SAT 97
--- NOTE | 2023-02-28 09:16 | ED.GENADULT ---
HPI - General Adult General Chief complaint: Unspecified Stated complaint: sore throat Time Seen by Provider: 02/28/23 08:58 Source: patient Mode of arrival: ambulatory Limitations: no limitations History of Present Illness HPI narrative: this is a 67 year male with history hypertension diabetes presents with a 2 day history of sore throat tender submandibular glands no cough does have some congestion with no shortness of breath no audible wheezing no nausea vomiting no chest pain. Onset (ago): day(s) Related Data Home Medications Medication Instructions Recorded Confirmed atorvastatin 40 mg tablet 20 mg PO DAILY 12/08/20 02/28/23 losartan 100 mg tablet 100 mg PO DAILY 12/08/20 02/28/23 One-A-Day Men's 50 Plus 1 tablet PO DAILY 12/10/22 02/28/23 aspirin 325 mg tablet (Jaspal 325 mg PO DAILY 12/10/22 02/28/23 Aspirin) blood sugar diagnostic (Counts include 234 beds at the [facility] 12/10/22 02/28/23 Verio test strips) blood-glucose meter (Counts include 234 beds at the [facility] 12/10/22 02/28/23 Verio Flex Meter) carvedilol 12.5 mg tablet 12.5 mg PO BID 12/10/22 02/28/23 glucosamine sulfate 500 mg tablet 500 mg PO DAILY 12/10/22 02/28/23 (Glucosamine) metformin 500 mg tablet,extended 2,000 mg PO DAILY 12/10/22 02/28/23 release 24 hr sumatriptan 20 mg/actuation nasal 20 mg intranasal DAILY PRN 12/10/22 02/28/23 spray Migraine Headache tamsulosin 0.4 mg capsule 0.4 mg PO DAILY PRN Urinary 12/10/22 02/28/23 Retention Allergies Allergy/AdvReac Type Severity Reaction Status Date / Time bee venom protein (honey bee) Allergy Unknown SWELLING Verified 02/28/23 09:01 OF EXTREMETIES cefaclor Allergy Unknown Hives Verified 02/28/23 09:01 Review of Systems Review of Systems: All systems reviewed & are unremarkable except as noted in HPI and below PMFSH Past Medical History Medical History Benign prostatic hyperplasia Chronic kidney disease Chronic obstructive pulmonary disease Hyperlipidemia Hypertension Thoracic aortic aneurysm Surgical History Surgical History History of colonoscopy with polypectomy History of parotidectomy History of tonsillectomy Family History Family History Other Family history of lung cancer Hypertension Social History Social History Smoking packs per day: 1 Smoking cigarettes per day: 20.0 Smoking status: Former smoker Smoking end date: 07/20/15 Alcohol intake: current Substance use type: does not use Lack of Transportation: No Lack of Food: Never True Current Housing: I Have Housing Concerned About Future Housing: No Difficulty Paying Gas/Electric Bills: No Difficulty Paying for Meds: No Currently Unemployed: YES Education: Associate Degree Difficulty w/ Childcare or Family Care: No Spiritual care concerns: No Exam Const: General: cooperative, healthy appearing, comfortable, no acute distress and well developed HENMT: Other: Tender bilateral submandibular glands with some tonsillar erythema bilateral ear dullness and pressure sensation Eyes: General: appearance normal, both eyes and all related structures Neck: Lymphatic: lymphadenopathy Chest: Chest palpation & inspection: normal inspection of the chest and normal palpation of entire chest wall Resp: Effort & Inspection: normal respiratory effort and able to speak in complete sentences Auscultation: clear to auscultation bilaterally Cardio: Palpation: normal PMI Rate: regular rate Rhythm: regular rhythm Skin: General skin exam: normal color and no rashes or lesions noted Course Course Emergency Course: stable blood pressure elevated, having congestion with sore throat strep was performed and was negative, patient advised to take Claritin and Flonase as needed [facility]
[2023-02-28 09:38] LABS: Strep Group A RT-PCR NOT DETECTED (Negative)
[2023-02-28 09:51] VITALS: BP 147/84; PULSE 65; RESP 17; TEMP 36.9; O2SAT 97
== END 2023-02-28 09:51 | disposition home or self-care (01) ==
PROVIDERS: Emergency Provider Emergency Medicine; PCP Internal Medicine
DX: J01.10 Acute frontal sinusitis, unspecified (principal); I12.9 Hypertensive chronic kidney disease with stage 1 through stage 4 chronic kidney disease, or unspecified chronic kidney disease; N18.9 Chronic kidney disease, unspecified; E11.22 Type 2 diabetes mellitus with diabetic chronic kidney disease; J44.9 Chronic obstructive pulmonary disease, unspecified; E78.5 Hyperlipidemia, unspecified; Z79.899 Other long term (current) drug therapy; Z79.82 Long term (current) use of aspirin; Z87.891 Personal history of nicotine dependence
CPT/HCPCS: 87651; 99283

== ENCOUNTER 2024-11-18 14:52 | Emergency (ER) | payer MEDICARE, BC, SELFPAY ==
[2024-11-18 14:53] VITALS: BP 188/108; PULSE 77; RESP 20; TEMP 37; O2SAT 98
--- NOTE | 2024-11-18 15:05 | PC.NURSE ---
Covid culture sent to lab
--- NOTE | 2024-11-18 15:10 | ED.URI ---
HPI - URI/Sore Throat General Chief Complaint: Upper Respiratory Infection Stated Complaint: sore throat Time Seen by Provider: 11/18/24 15:08 Source: patient Mode of arrival: ambulatory Limitations: no limitations History of Present Illness HPI Narrative: 69-year-old male ex-smoker with a history of hypertension, diabetes mellitus, dyslipidemia, thoracic aortic aneurysm, COPD, CKD presents to the ED with a 1 day history of -- sore throat -- pain on the right inner cheek no fever or chills no cough or sputum production Onset (ago): day(s) ( 1 day) Consistency: constant Description of mucous: clear Able to tolerate fluids by mouth: Yes Exacerbating factors: nothing Relieving factors: nothing Associated symptoms: denies other symptoms Treatments prior to arrival: none Related Data Home Medications ?Medication ?Instructions ?Recorded ?Confirmed ?Last Taken ?Type atorvastatin 40 mg tablet 40 mg PO DAILY 12/08/20 02/28/23 12/21/20 History losartan 100 mg tablet 100 mg PO DAILY 12/08/20 02/28/23 12/21/20 History One-A-Day Men's 50 Plus 1 tablet PO DAILY 12/10/22 02/28/23 Unknown History blood sugar diagnostic (OneTouch 12/10/22 02/28/23 Unknown History Verio test strips) blood-glucose meter (OneTouch 12/10/22 02/28/23 Unknown History Verio Flex Meter) carvedilol 12.5 mg tablet 12.5 mg PO BID 12/10/22 02/28/23 Unknown History glucosamine sulfate 500 mg tablet 500 mg PO DAILY 12/10/22 02/28/23 Unknown History (Glucosamine) metformin 500 mg tablet,extended 1,000 mg PO BID 12/10/22 02/28/23 Unknown History release 24 hr sumatriptan 20 mg/actuation nasal 20 mg intranasal DAILY PRN 12/10/22 02/28/23 Unknown History spray Migraine Headache tamsulosin 0.4 mg capsule 0.4 mg PO DAILY PRN Urinary 12/10/22 02/28/23 Unknown History Retention pantoprazole 40 mg tablet,delayed 40 mg PO DAILY 11/18/24 Unknown History release Allergies Allergy/AdvReac Type Severity Reaction Status Date / Time bee venom protein (honey bee) Allergy Unknown SWELLING Verified 11/18/24 15:13 OF EXTREMETIES cefaclor Allergy Unknown Hives Verified 11/18/24 15:13 Review of Systems Review of Systems: All systems reviewed & are unremarkable except as noted in HPI and below PMFSH Past Medical History Medical History Benign prostatic hyperplasia Thoracic aortic aneurysm Chronic kidney disease Chronic obstructive pulmonary disease Hypertension Hyperlipidemia Surgical History Surgical History History of parotidectomy History of tonsillectomy History of colonoscopy with polypectomy Family History Family History Other Family history of lung cancer Hypertension Social History Social History Smoking packs per day: 1 Smoking cigarettes per day: 20.0 Smoking status: Former smoker Smoking end date: 07/20/15 Alcohol intake: current Substance use type: does not use Lack of Transportation: No Lack of Food: Never True Current Housing: I Have Housing Concerned About Future Housing: No Difficulty Paying Gas/Electric Bills: No Difficulty Paying for Meds: No Currently Unemployed: YES Education: Associate Degree Difficulty w/ Childcare or Family Care: No Spiritual care concerns: No Exam Narrative: blood pressure 188/108 Const: Orientation/consciousness: patient oriented x3 Limitations: no limitations HENMT: Head: normal to inspection Ears: external ears normal Face/Nose/Sinus: Normal external nose present Face and sinus: normal facial exam Mouth: Yes Abnormal oral and palatal mucosa present ( 1 cm ulceration/ erythematous spot lateral to right upper 2nd molar ) ulceration ( on right inner cheek) Teeth and gingiva: abnormal tooth and associated gingiva Throat: posterior oropharynx normal Eyes: Conjunctivae: conjunctivae normal Pupils: Equal, round and reactive pupils present Direct Ophthalmoscopy: no photophobia Neck: Neck: normal visual inspection and no lymphadenopathy Chest: Chest palpation & inspection: normal inspection of the chest Resp: Effort & Inspection: normal respiratory effort Auscultation: clear to auscultation bilaterally Cardio: Rate: regular rate Rhythm: regular rhythm GI: GI Palp: Yes Soft to palpation Auscultation: normal bowel sounds Other: no tenderness/ rigidity /rebound : General: Yes no CVA tenderness Back/Spine/Pelvis: Back: no CVA tenderness Skin: General skin exam: normal color Rashes: no rashes Wounds: no wounds Neuro: General: patient oriented x3, moves all extremities, no meningeal signs, no focal motor deficits and CN's II-XI intact bilaterally Cranial nerves: Yes Nystagmus not present Speech: normal speech Gait exam (Neuro): Normal gait present Extrem: General: normal to inspection Psych: Mental Status: mental status grossly normal Affect: normal affect Course Course Emergency Course: sore throat-- patient tested negative for RSV / influenza / COVID and strep painful oral ulcer-- the ulcer is adjacent 2nd molar. this could be secondary to a traumatic aphthous ulcer will treat with Flagyl. if no improvement in 2 weeks have the patient follow-up with ENT/ Dentist Vital Signs Vital signs: Vital Signs Temperature 37.0 C 11/18/24 14:53 Pulse Rate 77 11/18/24 14:53 Respiratory Rate 20 11/18/24 14:53 Blood Pressure 188/108 H 11/18/24 14:53 Pulse Oximetry 98 11/18/24 14:53 Oxygen Delivery Room Air 11/18/24 14:53 Temperature 37.0 C 11/18/24 14:53 Pulse Rate 77 11/18/24 14:53 Respiratory Rate 20 11/18/24 14:53 Blood Pressure 188/108 H 11/18/24 14:53 Pulse Oximetry 98 11/18/24 14:53 Oxygen Delivery Room Air 11/18/24 14:53 MDM - URI/Sore Throat MDM Narrative Medical decision making narrative: sore throat oral ulcer Differential Diagnosis Differential diagnosis: Likely bronchitis Medical Records Attestation: I reviewed the patient's medical records. Lab Data Attestation: I reviewed the patient's lab results. Labs: Lab Results 11/18/24 Range/Units 15:21 Influenza A (RT-PCR) Negative (Negative) Influenza B (RT-PCR) Negative (Negative) RSV (RT-PCR) Negative (Negative) SARS-CoV-2 RNA (RT-PCR) Negative (Negative) Group A Strep (PCR) Not detected (Negative) Discharge Plan Discharge Clinical Impression: Upper respiratory infection, Oral ulcer Patient Disposition: Home Condition: Stable Instructions: Antibiotic Form, Gingivostomatitis (ED) Patient Language: Tongan Prescriptions: New metronidazole 500 mg tablet 500 mg PO Q8H Qty: 20 0RF No Action pantoprazole 40 mg tablet,delayed release (DR/EC) 40 mg PO DAILY atorvastatin 40 mg tablet 40 mg PO DAILY losartan 100 mg tablet 100 mg PO DAILY carvedilol 12.5 mg tablet 12.5 mg PO BID glucosamine sulfate [Glucosamine] 500 mg Tablet 500 mg PO DAILY Rx Instructions: administer with a meal tamsulosin 0.4 mg capsule 0.4 mg PO DAILY PRN (Reason: Urinary Retention) sumatriptan 20 mg/actuation spray,non-aerosol 20 mg INTRANASAL DAILY PRN (Reason: Migraine Headache) metformin 500 mg tablet extended release 24 hr 1,000 mg PO BID One-A-Day Men's 50 Plus 1 tablet PO DAILY (DME) blood-glucose meter [OneTouch Verio Flex meter] Misc MISCELLANEOUS (DME) OneTouch Verio test strips Strip MISCELLANEOUS Follow-up/Referrals: Bharat Purcell MD [Primary Care Provider, Internal Medicine] Time of Disposition: 16:18
--- OUTSIDE RECORDS SUMMARY | 2024-11-18 15:24 | XMS_ITS | Clinical Summary ---
Author Organization [facility] Address [address] [place] [id number] Care Team Providers Care General Engineering Teacher Name Role Phone Bharat Purcell MD Primary Care Provider [phone] Allergies Active Allergy Reactions Criticality Noted Date Comments Cefaclor Hives Medium Venom-Honey Bee Edema Medium Medications atorvastatin (LIPITOR) 40 mg tablet Take 1 tablet (40 mg total) by mouth district plant engineer before breakfast Active aspirin 325 mg EC tablet Take 1 tablet (325 mg total) by mouth daily. 30 tablet 8 Active losartan (COZAAR) 100 mg tablet Take 1 tablet (100 mg total) by mouth daily Active carvediloL (COREG) 12.5 mg tablet Take 1 tablet (12.5 mg total) by mouth 2 (two) times a day with meals Active metFORMIN XR (GLUCOPHAGE XR) 500 mg 24 hr tablet daily with breakfast 4 Active tamsulosin (FLOMAX) 0.4 mg extended release capsule nightly 3 Active glucosamine sulfate (Glucosamine) 500 mg tablet Take by mouth OTC Active multivitamin with minerals tablet Take 1 tablet by mouth daily Seniors Multivitamins Active Active Problems Problem Noted Date Diagnosed Date Toe pain, right 01/28/2018 Overview (01/28/2018): Added automatically from request for surgery [id number] Scar tissue 01/28/2018 Overview (01/28/2018): Added automatically from request for surgery [id number] Aortic aneurysm 04/10/2017 History of amputation of right foot 08/31/2015 Multiple closed fractures of metatarsal bone 01/2016 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 Parotid mass 01/31/2012 Encounter for preventive health examination 12/31 Encounters Date Type Department Care Team Description 09/22/2024 Results Follow-Up [facility] [address] [place] [address] [place] Gaona MD CTA Chest and Abdomen from Last 3 Months Surgical History Surgery Date Site/Laterality Comments FOOT AMPUTATION 07/01/2015 - 07/30/2015 TONSILLECTOMY PAROTIDECTOMY 03/01/2012 - 03/31/2012 with excisional lymph node biopsy OTHER SURGICAL HISTORY 07/01/2015 - 07/30/2015 incision and debridement down to bone on an open fracture FOOT AMPUTATION THROUGH METATARSAL 07/31/2015 - 08/30/2015 HERNIA REPAIR 12/16/2017 umbilical COLONOSCOPY Medical History Medical History Date Comments Hyperlipidemia Hypertension Ascending aortic aneurysm 4.6cm per chest CT 10/2017 Obesity COPD (chronic obstructive pulmonary disease) Depression Headache Migraines Colon polyp Former smoker quit 2016 Pulmonic valve regurgitation mil d per TTE 05/15/2017 Tricuspid valve regurgitation mi ld per TTE 05/15/2017 Aortic valve regurgitation mild per TTE 05/15/2017 Family History Medical History Relation Name Comments Alcohol abuse Father Cancer Father Gout Father Hypertension Father Lung disease Father Arthritis Mother Hypertension Mother Relation Name Status Comments Father no history of c oronary disease valvular disease or aneurysmal disease Mother no history of p remature coronary disease valvular disease or aneurysmal disease Social History Tobacco Use Types Packs/Day Years Used Date Smoking Tobacco: Former Cigarettes Q uit: 2017 Smokeless Tobacco: Never Tobacco Cessation:Counseling Given: Not Answered Alcohol Use Standard Drinks/Week Comments Yes 0 (1 standard drink = 0.6 oz pur e alcohol) RARE Sex and Gender Information Value Date Recorded Sex Assigned at Not on file 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 Gender Identity Not on file Sexual Orientation Not on file Obstetrics History Last Filed Vital Signs Vital Sign Reading Time Taken Comments Blood Pressure 132/84 07/15/2024 10:11 AM CDT Pulse 70 07/15/2024 10:11 AM CDT Temperature 37 C (98.6 F) 11/14/2017 11:43 AM CDT Respiratory Rate 14 02/18/2018 11:5 5 AM SALES ASSOCIATE CASHIER Oxygen Saturation 98% 07/15/2024 10: 11 AM CDT Inhaled Oxygen Concentration - - Weight 131.9 kg (290 lb 12.8 oz) 2024 10:11 AM CDT Height 182.9 cm (6') 07/15/2024 10:11 AM CDT Body Mass Index 39.44 07/15/2024 10:11 AM CDT Plan of Treatment Health Maintenance Due Date Last Done Comments Colon Cancer Screening-Colonoscopy 1955 Depression Screening 1955 Fall Risk Assessment 1955 Hepatitis C Screening 1955 Prostate Cancer Screening-PSA 1955 Hepatitis B Screening 10/02/1973 Well Visit 65+ 10/02/2020 Covid-19 Vaccine ( - 2023-2 5 season) 2023 09/20/2021, 02/08/2021, 06/10/2020, Additional history exists Influenza Vaccine (#1) 2024 , 02/08/2021, 12/01/2020, Additional history exists DTaP/Tdap/Td Vaccine (3 - Td or Tdap) 04/25/2028 04/25/2018, 09/29/2007 Zoster Vaccine Completed 08/13/2018, 11/2018, 02/14/2016 Pneumococcal vaccine 65+ Completed 022, 02/14/2016, 05/29/2011 Abdominal Aortic Aneurysm (A AA) Screen Completed 07/01/2024, 11/08/2023, 11/14/2017, Additional history exists Procedures Procedure Name Priority Date/Time Associated Diagnosis Comments CTA CHEST ABDOMEN W WO CONTRAST Schedule Routine, Read Routine (OP Routine) 07/01/2024 8:50 AM CDT Aortic aneurysm, unspecified portion of aorta, unspecified whether ruptured from Last 3 Months or Most Recently Relevant to Health Maintenance Results * CTA Chest and Abdomen (07/01/2024 8:50 AM CDT) Anatomical Region Laterality Modality Body N/A Computed Tomogra phy 09/22/2024 8:14 PM CDT Addenda Addendum by Errol Torres MD on 09/22/2024 8:14 PM CDT The examination should read as follows: EXAMINATION: CTA CHEST ABDOMEN W CONTRAST Dictated by: Abdi Fleming MD The radiology attending physician has personally reviewed this study, and had reviewed and/or edited this written report and agrees with it. ADDENDUM Addendum issued at 09/04/2024 9:[address] Abdi Fleming. The purpose of this addendum is to correct the exam title and technique for accurate documentation of the study performed. The corrected title and technique follow: EXAMINATION: CT chest and abdomen with contrast HISTORY: Aortic aneurysm suspected TECHNIQUE: Computed tomographic images were acquired with and without intravenous contrast using a Chest and abdomen angiographic protocol optimized for aortic dissection (aorta). The Contrast enhanced transaxial images were obtained following the intravenous administration of 100 ml of nonionic contrast. Multiplanar reformatted images and three-dimensional images of the aorta and associated vasculature were created and interpreted by the radiologist. Dictated by: Abdi Fleming MD The radiology attending physician has personally reviewed this study, and had reviewed and/or edited this written report and agrees with it. Electronically signed by: Errol Torres M.D. Impressions 07/01/2024 5:49 PM CDT 1. Stable thoracic aortic caliber, measuring up to 4.8 cm 2. Infrarenal abdominal aortic dilatation measuring up to 4.8 cm. Dictated by: Abdi Fleming MD The radiology attending physician has personally reviewed this study, and had reviewed and/or edited this written report and agrees with it. Electronically signed by: Errol Torres M.D. Narrative 07/01/2024 5:49 PM CDT EXAMINATION: CT CHEST ABDOMEN W CONTRAST HISTORY: Aortic aneurysm suspected TECHNIQUE: Computed tomographic images were acquired with and without intravenous contrast using a Chest angiographic protocol optimized for aortic dissection (aorta). The Contrast enhanced transaxial images were obtained following the intravenous administration of 100 ml of nonionic contrast. Multiplanar reformatted images and three-dimensional images of the aorta and associated vasculature were created and interpreted by the radiologist. COMPARISON: 06/10/23 FINDINGS: Angiographic findings: Multivessel coronary artery calcifications. Aortic Measurements as follows: Sinuses of Valsalva: 43 x 42 x 42 mm Sinotubular Junction: 43 x 42 mm Ascending aorta: 48 x 48 mm These are all relatively unchanged from the prior examination. Non-angiographic findings: No thoracic lymphadenopathy. No pericardial effusion. No suspicious consolidation, pleural effusion, or pneumothorax. No pulmonary nodule. Unchanged hepatic cysts. The spleen, pancreas, and gallbladder are unremarkable. Unchanged left adrenal myelolipoma. Stable nodularity of the right adrenal tail, likely adenoma. Multivessel calcified and calcified atherosclerosis noted throughout the thoracoabdominal aorta and its branches. There is dilatation of the infrarenal abdominal aorta which measures up to 4.8 cm. Partially imaged left common iliac aneurysm. No bowel obstruction in the imaged bowel. No acute fracture or aggressive osseous lesion. Procedure Note Errol Torres MD - 07/01/2024 EXAMINATION: CT CHEST ABDOMEN W CONTRAST HISTORY: Aortic aneurysm suspected TECHNIQUE: Computed tomographic images were acquired with and without intravenous contrast using a Chest angiographic protocol optimized for aortic dissection (aorta). The Contrast enhanced transaxial images were obtained following the intravenous administration of 100 ml of nonionic contrast. Multiplanar reformatted images and three-dimensional images of the aorta and associated vasculature were created and interpreted by the radiologist. COMPARISON: 06/10/23 FINDINGS: Angiographic findings: Multivessel coronary artery calcifications. Aortic Measurements as follows: Sinuses of Valsalva: 43 x 42 x 42 mm Sinotubular Junction: 43 x 42 mm Ascending aorta: 48 x 48 mm These are all relatively unchanged from the prior examination. Non-angiographic findings: No thoracic lymphadenopathy. No pericardial effusion. No suspicious consolidation, pleural effusion, or pneumothorax. No pulmonary nodule. Unchanged hepatic cysts. The spleen, pancreas, and gallbladder are unremarkable. Unchanged left adrenal myelolipoma. Stable nodularity of the right adrenal tail, likely adenoma. Multivessel calcified and calcified atherosclerosis noted throughout the thoracoabdominal aorta and its branches. There is dilatation of the infrarenal abdominal aorta which measures up to 4.8 cm. Partially imaged left common iliac aneurysm. No bowel obstruction in the imaged bowel. No acute fracture or aggressive osseous lesion. IMPRESSION: 1. Stable thoracic aortic caliber, measuring up to 4.8 cm 2. Infrarenal abdominal aortic dilatation measuring up to 4.8 cm. Dictated by: Abdi Fleming MD The radiology attending physician has personally reviewed this study, and had reviewed and/or edited this written report and agrees with it. Electronically signed by: Errol Torres M.D. [place] Gaona MD IMG CT PROCEDURES Edited Res ult - Final from Last 3 Months or Most Recently Relevant to Health Maintenance [place] [address] AET SENIOR SUPPLEMENT [facility], [facility] ACCESS MEDICARE [employer] SENIOR SUPPLEMENT Care Teams General Engineering Teacher Relationship Specialty Start Date End Date Bharat Purcell MD [address] [place] [address] PCP - General 05/31/17
--- OUTSIDE RECORDS SUMMARY | 2024-11-18 15:24 | XMS_ITS | Encounter Summary ---
Author Organization [facility] Healthcare Address [facility] [place] [address] Care Team Providers Care Veterinary Nurse Name Role Phone Bharat Purcell MD Primary Care Provider [phone] Encounter Details Date Type Department Care Team (Late st Contact Info) Description 09/22/2024 Results Follow-Up [facility] [address] [place] [address] Dayton Gaona MD [address] [facility] [address] [place] [address] CTA Chest and Abdomen Social History Tobacco Use Types Packs/Day Years Used Date Smoking Tobacco: Former Cigarettes Q uit: 2017 Smokeless Tobacco: Never Alcohol Use Standard Drinks/Week Comments Yes 0 (1 standard drink = 0.6 oz pur e alcohol) RARE Sex and Gender Information Value Date Recorded Sex Assigned at Not on file 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 Pt aware to call with questions/concerns documented in this encounter Plan of Treatment Not on file documented as of this encounter Visit Diagnoses Not on filedocumented in this encounter Care Teams Veterinary Nurse Relationship Specialty Start Date End Date Bharat Purcell MD [address] [place] [id number] PCP - General 05/31/17 documented as of this encounter
[2024-11-18 15:48] LABS: Strep Group A RT-PCR NOT DETECTED (Negative)
--- OUTSIDE RECORDS SUMMARY | 2024-11-18 15:49 | XMS_ITS | Clinical Summary ---
Author Organization [facility] Address [address] [place] [phone] Care Team Providers Care Director Inpatient Headache Program Name Role Phone Bharat Purcell MD Primary Care Provider [phone] Allergies Active Allergy Reactions Criticality Noted Date Comments Cefaclor Hives Medium Venom-Honey Bee Edema Medium Medications atorvastatin (LIPITOR) 40 mg tablet Take 1 tablet (40 mg total) by mouth mud worker before breakfast Active aspirin 325 mg EC [...] (01/28/2018): Added automatically from request for surgery [id number] Scar tissue 01/28/2018 Overview (01/28/2018): Added automatically from request for surgery [id number] Aortic aneurysm 04/10/2017 History of amputation of right foot 08/31/2015 Multiple closed fractures of metatarsal bone 01/2016 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 Gender Identity Not on file Sexual Orientation Not on file Obstetrics History Last Filed Vital Signs Vital Sign Reading Time Taken Comments Blood Pressure 132/84 07/15/2024 10:11 AM CDT Pulse 70 07/15/2024 10:11 AM CDT Temperature 37 C (98.6 F) 11/14/2017 11:43 AM CDT Respiratory Rate 14 02/18/2018 11:5 5 AM COMPOSITION ROOFER Oxygen Saturation 98% 07/15/2024 10: 11 AM [...] Recently Relevant to Health Maintenance Insurance MEDICARE AET SENIOR SUPPLEMENT [facility] ACCESS MEDICARE AETNA SENIOR SUPPLEMENT Care Teams Director Inpatient Headache Program Relationship Specialty Start Date End Date Bharat Purcell MD [address] [place] [address] PCP - General 05/31/17
--- OUTSIDE RECORDS SUMMARY | 2024-11-18 15:49 | XMS_ITS | Encounter Summary ---
Author Organization [facility] Healthcare Address [facility] [place] [address] Care Team Providers Care Vitamin Manager Name Role Phone Bharat Purcell MD Primary Care Provider [phone] Encounter Details Date Type Department Care Team (Late st Contact Info) Description 09/22/2024 Results Follow-Up [facility] [address] [place] [address] Dayton Gaona MD [address] [facility] [address] [place] [address] CTA Chest and Abdomen Social History Tobacco Use Types Packs/Day Years Used Date Smoking Tobacco: Former Cigarettes Q uit: 2017 Smokeless Tobacco: Never Alcohol Use Standard Drinks/Week Comments Yes 0 (1 standard drink = 0.6 oz pur e alcohol) RARE Sex and Gender Information Value Date Recorded Sex Assigned at Not on file Legal Sex Male 6:35 AM SPECIAL NEEDS NANNY Gender Identity Not on file Sexual Orientation Not on file documented as of this encounter Miscellaneous Notes * Result Encounter Note - Helene Ford RN - 09/23/2024 8:56 AM CDT Varthanat message sent with results. Pt aware to call with questions/concerns documented in this encounter Plan of Treatment Not on file documented as of this encounter Visit Diagnoses Not on filedocumented in this encounter Care Teams Vitamin Manager Relationship Specialty Start Date End Date Bharat Purcell MD [address] [place] [id number] PCP - General 05/31/17 documented as of this encounter
[2024-11-18 15:59] LABS: Influenza A QL RT-PCR Negative (Negative); Influenza B QL RT-PCR Negative (Negative); RSV RNA, RT-PCR Negative (Negative); SARS-CoV-2 RNA PCR Negative (Negative)
[2024-11-18 16:25] VITALS: BP 168/88; PULSE 75; RESP 20; TEMP 36.9; O2SAT 98
== END 2024-11-18 16:25 | disposition home or self-care (01) ==
PROVIDERS: Emergency Provider Internal Medicine Critical Care Medicine; PCP Internal Medicine
DX: K12.1 Other forms of stomatitis (principal); E78.5 Hyperlipidemia, unspecified; J44.9 Chronic obstructive pulmonary disease, unspecified; E11.22 Type 2 diabetes mellitus with diabetic chronic kidney disease; I12.9 Hypertensive chronic kidney disease with stage 1 through stage 4 chronic kidney disease, or unspecified chronic kidney disease; N18.9 Chronic kidney disease, unspecified; Z87.891 Personal history of nicotine dependence; Z20.822 Contact with and (suspected) exposure to COVID-19
CPT/HCPCS: 87637; 87651; 99283

== ENCOUNTER 2025-01-08 12:41 | Outpatient (CLI) | payer MEDICARE, BC, SELFPAY ==
--- NOTE | ~2025-01-08 | CT_ITS ---
EXAMINATION: CTA chest abdomen pelvis DATE: 01/08/2025 14:29 INDICATION: Abdominal aortic aneurysm. TECHNIQUE: Computed tomographic angiography (CTA) of the chest, abdomen, and pelvis was performed with 100 mL Omnipaque-350 intravenous contrast. Automated exposure control and iterative reconstruction technique were employed. The dose- length product was 1969.55 mGy-cm. Maximum intensity projection 3D- reconstructions of the aorta and other arteries were constructed by the technologist on a separate workstation. COMPARISON: CT abdomen and pelvis 12/10/2022, chest CT 09/12/2022 FINDINGS: CHEST CTA: There is no pneumonia or pleural effusion. The heart size is normal. There are coronary artery calcifications. No pericardial effusion. The aorta measures 4.9 cm at the sinuses of Valsalva, 4.7 cm at the sinotubular junction, 5.0 cm in the mid ascending aorta, 3.6 cm at the aortic isthmus, and 4.0 cm in the mid descending aorta. Aortic atherosclerosis is noted. There are bridging endplate osteophytes at multiple levels in the spine, consistent with diffuse idiopathic skeletal hyperostosis (DISH). There is severe cervical spondylosis. ABDOMEN AND PELVIS CTA: There are cysts in the liver measuring up to 2.6 cm. The gallbladder, spleen, and pancreas are normal. There is a 2.5 cm mass containing fat in left adrenal gland, consistent with a myelolipoma. There is a 1.7 cm mass in left adrenal gland without change, likely an adenoma. There is a 10 mm mass in right adrenal gland without change, likely an adenoma. There is cortical thinning of the kidneys. The prostate is moderately enlarged. There is a right inguinal hernia containing fat. There is diverticulosis of the colon without evidence of diverticulitis. The appendix is normal. There are no dilated loops of bowel. There are no pathologically enlarged lymph nodes. There is no free intraperitoneal fluid. There is a 4.7 cm fusiform aneurysm of infrarenal aorta. There is no significant stenosis of celiac axis, superior mesenteric artery, the renal arteries, or inferior mesenteric artery. There is severe lower lumbar spondylosis. IMPRESSION: 1. 5.0 cm fusiform aneurysm of ascending aorta. 2. 4.7 cm fusiform aneurysm of infrarenal aorta. Reviewed, dictated and finalized at location E.
[2025-01-08 13:17] LABS: Estimated Glomerular Filt Rate 50
== END 2025-01-08 12:42 | disposition home or self-care (01) ==
LOC: CHSIMG 12:42
PROVIDERS: PCP Internal Medicine; Visit Provider Internal Medicine
DX: I71.40 Abdominal aortic aneurysm, without rupture, unspecified (principal); I71.43 Infrarenal abdominal aortic aneurysm, without rupture
CPT/HCPCS: 71275; 74174; Q9967